=== PATIENT | male | born 1960 | race Caucasian/White ===

== ENCOUNTER 2019-06-28 16:07 | Outpatient (CLI) | payer OTHER ==
[2019-06-28 17:09] LABS: Hemoglobin 15.5 g/dL (14.0-18.0); Mean Corpuscular HGB CONC 32.8 g/dL (32.0-36.0); Mean Corpuscular Hemoglobin 30.7 pg (27.0-31.0); Mean Corpuscular Volume 93.4 fL (78.0-98.0); Mean Platelet Volume 7.4 fL (7.4-10.4); Platelet Count 178 thou/uL (130-400); RBC Distribution Width 12.4 % (11.5-14.5); Red Blood Cell (RBC) Count 5.06 mill/uL (4.70-6.10); White Blood Cell (WBC) Count 6.4 thou/uL (4.8-10.8)
[2019-06-28 17:15] LABS: INR-International Normal Ratio 0.9; PTT 26.6 SEC (22.9-36.1); Prothrombin Time 11.6 SEC (12.0-14.7)
[2019-06-28 17:16] LABS: Bacteria/HPF None Seen HPF (None Seen); Bilirubin Negative (Negative); Blood, Urine Negative (Negative); Clarity Clear (Clear); Glucose, Urine (Dipstick) Normal (Negative); Leukocyte Negative Leu/uL (Negative); Nitrite Negative (Negative); Protein, Urine (Dipstick) Negative (Neg-Trace); RBC/HPF 0-3 HPF (0-3); Squamous Epithelial None Seen HPF (0-3); WBC/HPF 0-3 HPF (0-3)
[2019-06-28 17:45] LABS: Anion Gap 13 mmol/L (10-20); BUN (Urea Nitrogen) 12 mg/dL (8.4-25.7); Calc. Creatinine Clearance 0 mL/min (70-130); Calcium 9.4 mg/dL (7.8-10.44); Carbon Dioxide 23 mmol/L (22-29); Chloride 103 mmol/L (98-107); Estimated GFR-MDRD Greater than 90; Glucose 92 mg/dL (70-105); Potassium 4.3 mmol/L (3.5-5.1); Sodium 135 mmol/L (136-145)
--- NOTE | 2019-06-29 14:18 | EKG ---
Test Reason : Blood Pressure : / mmHG Vent. Rate : 070 BPM Atrial Rate : 070 BPM P-R Int : 170 ms QRS Dur : 098 ms QT Int : 394 ms P-R-T Axes : 073 158 073 degrees QTc Int : 425 ms Normal sinus rhythm Left posterior fascicular block Abnormal ECG No previous ECGs available Confirmed by GARY PETTIT, DR. Mratinez ([id number]) on 06/29/2019 2:18:00 PM Referred By: YOLANDA Confirmed By:DR. Juan VEGA MD
== END 2019-06-28 16:08 | disposition home or self-care (01) ==
LOC: LABBT 16:07
PROVIDERS: ATTEND Urology
DX: Z01.818 Encounter for other preprocedural examination (principal); Z87.442 Personal history of urinary calculi
CPT/HCPCS: 80048; 81001; 85027; 85610; 85730; 87086; 93005; 93010; G0103

== ENCOUNTER 2019-07-07 15:00 | Outpatient (CLI) | payer OTHER ==
--- NOTE | 2019-07-07 15:25 | ULT ---
Renal sonogram HISTORY: Flank pain. Stones. FINDINGS: Right kidney measures up to 10.0 cm length and the left 10.7 cm. Each has a normal sonograp hic appearance without evidence of mass, stone, or hydronephrosis. Urinary bladder is unremarkable. IMPRESSION: Normal exam.
== END 2019-07-07 15:01 | disposition home or self-care (01) ==
LOC: ULT 15:00
PROVIDERS: ATTEND Urology
DX: Z09 Encounter for follow-up examination after completed treatment for conditions other than malignant neoplasm (principal); Z87.442 Personal history of urinary calculi
CPT/HCPCS: 76770; 81001; 87086

== ENCOUNTER 2019-07-14 06:17 | Day surgery (SDC) | payer OTHER ==
[2019-06-28 16:25] VITALS: BMI 25.7
[2019-07-14] MEDS ORDERED: Levofloxacin 500 mg/D5W 100 ml Premix Bag ONE (07:18)
[2019-07-14] MEDS ORDERED: Propofol 1,000 MG/100 ML VIAL IV ONE (08:17)
[2019-07-14] MEDS ORDERED: Midazolam HCl 2 mg/2 ml Vial ONE (08:17)
[2019-07-14] MEDS ORDERED: Fentanyl 100 MCG/2 ML VIAL ONE (08:17)
[2019-07-14] MEDS ORDERED: Phenazopyridine HCl 97.5 MG TABLET ONE (09:23)
--- NOTE | 2019-07-14 09:27 | OP ---
DATE OF PROCEDURE: 07/14/2019 PREOPERATIVE DIAGNOSES: 1. A 59-year-old male with history of benign prostatic hypertrophy. 2. Decreased ejaculation. 3. Sensation of incomplete void. POSTOPERATIVE DIAGNOSES: 1. A 59-year-old male with history of benign prostatic hypertrophy. 2. Decreased ejaculation. 3. Sensation of incomplete void. PROCEDURES PERFORMED: Cystoscopy, transrectal ultrasound volume study, and evaluation of seminal vesicles. ANESTHESIA: TIVA. COMPLICATIONS: None apparent. DISPOSITION: To recovery room in stable condition. INDICATIONS FOR PROCEDURE AND HISTORY: Mr. Ramírez is a 59-year-old male with history of BPH. Remote history of kidney stones in which I obtained an ultrasound negative for recurrence. The patient had sensation of incomplete void, slow stream, moreover bothered by decreased ejaculatory volume. He presents today for cystoscopy, volume study, evaluation of seminal vesicles for a significant dilatation at present. As he has significant anxiety regarding his urologic issues and procedures, he desired exam under anesthesia. DESCRIPTION OF PROCEDURE: After an informed consent was signed, the patient was taken to the operating room, placed in supine position with the genital area prepped and draped in the usual surgical sterile fashion. A flexible cystoscopy was performed, which demonstrated no evidence of urethral stricture. The prostatic urethra was evaluated, which demonstrated mild laterally obstructing lobes, slightly in high median bar. Prostatic urethra did demonstrate evidence of prostatitis changes with microlithiasis. The ureteral orifices identified in normal anatomical location about 5 mm proximal to the bladder neck. No bladder lesions, tumors, stones are seen. At this time, the flexible cystoscope was completely removed, and he was placed in a lateral decubitus position with pressure points padded and protected at all times. Transrectal ultrasound volume study was obtained of the prostate, which demonstrated volume 20.7 g. His urethral length was 3.3, with a 4.7, height of 2.5. I did evaluate his seminal vesicles, which were nice and decompressed. There was no evidence of significant dilatation of seminal vesicles to suggest obstruction. He tolerated the procedure well and transported to the recovery room in stable condition. He will return to clinic next week to reassess. I will discuss with the patient regarding options of UroLift as an alternative option, as he has decreased flow sensation and unable to tolerate Flomax. Job ID: [id number] [facility]
[2019-07-14] MEDS ORDERED: PROPOFOL 200 MG/20 ML VIAL ONE (09:29)
== END 2019-07-14 10:05 | disposition home or self-care (01) ==
LOC: SDC 06:17
PROVIDERS: ATTEND Urology
PROC: 0TJB8ZZ Inspection of Bladder, Via Natural or Artificial Opening Endoscopic (ICD-10-PCS; principal; 2019-07-14)
DX: N40.1 Benign prostatic hyperplasia with lower urinary tract symptoms (principal); R39.14 Feeling of incomplete bladder emptying; R35.1 Nocturia; R39.198 Other difficulties with micturition; N53.19 Other ejaculatory dysfunction; D50.9 Iron deficiency anemia, unspecified; F41.9 Anxiety disorder, unspecified; F17.210 Nicotine dependence, cigarettes, uncomplicated; Z79.899 Other long term (current) drug therapy; Z88.0 Allergy status to penicillin; Z88.6 Allergy status to analgesic agent; Z88.8 Allergy status to other drugs, medicaments and biological substances; Z91.048 Other nonmedicinal substance allergy status
CPT/HCPCS: J1956; J2250; J2704; J3010

== ENCOUNTER 2021-05-10 14:07 | Emergency (ER) | payer OTHER ==
[~2021-05-10 14:07] MED LIST: Iopamidol-370 76% 500 ML 1 ML ONE
[2021-05-10 14:51] LABS: Acetaminophen Less than 6.0 mcg/mL (10.0-30.0); Alcohol Less than 10 mg/dL (Less than 10); Salicylate Less than 8.0 mg/dL (15.0-30.0)
[2021-05-10 14:56] LABS: ALT (SGPT) 10 U/L (8-55); AST (SGOT) 12 U/L (5-34); Albumin 3.9 g/dL (3.4-4.8); Alkaline Phosphatase 92 U/L (40-110); Anion Gap 14 mmol/L (10-20); BUN (Urea Nitrogen) 9 mg/dL (8.4-25.7); Bilirubin, Total 0.5 mg/dL (0.2-1.2); Calc. Creatinine Clearance 0 mL/min (70-130); Calcium 8.9 mg/dL (7.8-10.44); Carbon Dioxide 23 mmol/L (23-31); Chloride 104 mmol/L (98-107); Globulin 2.1 g/dL (2.4-3.5); Glucose 98 mg/dL (80-115); Lipase 69 U/L (8-78); Sodium 137 mmol/L (136-145)
[2021-05-10 14:59] LABS: #Basophils 0.1 thou/uL (0.0-0.2); #Eosinphils 0.2 thou/uL (0.0-0.7); #Lymphocytes 0.9 thou/uL (1.20-3.40); #Monocytes 0.4 thou/uL (0.11-0.59); #Neutrophils 4.4 thou/uL (1.40-6.50); %Basophils 0.8 % (0.0-1.0); %Eosinophils 3.6 % (0.0-10.0); %Lymphocytes 15.3 % (21.0-51.0); %Neutrophils 73.3 % (42.0-75.0); Hemoglobin 9.3 g/dL (14.0-18.0); Mean Corpuscular HGB CONC 31.9 g/dL (32.0-36.0); Mean Corpuscular Hemoglobin 23.6 pg (27.0-31.0); Mean Corpuscular Volume 73.8 fL (78.0-98.0); Mean Platelet Volume 8.8 fL (7.4-10.4); Platelet Count 254 thou/uL (130-400); RBC Distribution Width 18.5 % (11.5-14.5); Red Blood Cell (RBC) Count 3.96 mill/uL (4.70-6.10)
[2021-05-10 15:06] LABS: Hypochromia SLIGHT = 6-15 cells (100X) (0-5/hpf); MDiff Complete? YES; Microcytosis SLIGHT = 6-15 cells (100X) (0-5/hpf); Platelet Morphology Comment Appears Adequate; Target Cells SLIGHT = 2-5 cells (100X) (0-1/hpf)
[2021-05-10 17:26] LABS: Amphetamine Not Detected (NotDetected); Barbiturates Screen Not Detected (NotDetected); Benzodiazepine Screen Not Detected (NotDetected); Cocaine Metabolite Screen Not Detected (NotDetected); Methadone Not Detected (NotDetected); Methamphetamine Not Detected (NotDetected); Opiate Screen Not Detected (NotDetected); Oxycodone Screen Not Detected (NotDetected); Phencyclidine (PCP) Not Detected (NotDetected); THC/Cannabinoid Screen Not Detected (NotDetected); Tricyclic Screen Not Detected (NotDetected)
== END 2021-05-10 16:45 | disposition home or self-care (01) ==
LOC: ERS 14:07
DX: S02.832A Fracture of medial orbital wall, left side, initial encounter for closed fracture (principal); R07.2 Precordial pain; V89.2XXA Person injured in unspecified motor-vehicle accident, traffic, initial encounter
CPT/HCPCS: 36415; 70450; 70486; 71045; 71260; 72125; 74177; 80053; 80306; 80307; 83690; 83735; 84484; 85025; 86850; 86900; 86901; 93005; G0390; Q9967